=== PATIENT | female | born 1990 | race Caucasian/White ===

== ENCOUNTER 2019-11-25 14:36 | Observation (INO) | payer OTHER ==
--- NOTE | 2019-11-25 15:02 | ER Document Report ---
ED Medical Screen (RME) - General Chief Complaint: Breast Lump Stated Complaint: BREAST LUMP Time Seen by Provider: 11/25/19 14:55 Notes: Patient is a 29-year-old female who presents emergency department with a chief complaint of bilateral breast pain, but primarily on the left. Patient states that she was diagnosed with a hematoma in her right breast about 3 months ago. Patient states that she started having pain in her left breast a few weeks ago. She was seen by her RUBBER TILE FLOOR LAYER, as she is 2 months and was diagnosed with mastitis yesterday. Patient was started on Keflex. Patient was told by the RUBBER TILE FLOOR LAYER that she could possibly have an abscess in her left breast. She states that it is tender to touch. Exam: Exam deferred due to patient not in gown and in triage. Patient will be evaluated back. Ultrasound and labs ordered. I have greeted and performed a rapid initial assessment of this patient. A comprehensive ED assessment and evaluation of the patient, analysis of test results and completion of medical decision making process will be conducted by an additional ED providers. - Related Data Allergies/Adverse Reactions: No Known Allergies Allergy (Verified 11/25/19 14:54) Physical Exam - Vital signs Vitals: Temp Pulse Resp BP Pulse Ox 98.3 F 99 20 129/77 H 100 11/25/19 14:40 11/25/19 14:40 11/25/19 14:40 11/25/19 14:40 11/25/19 14:40 Course - Vital Signs Vital signs: Temp Pulse Resp BP Pulse Ox 98.3 F 99 20 129/77 H 100 11/25/19 14:40 11/25/19 14:40 11/25/19 14:40 11/25/19 14:40 11/25/19 14:40
[2019-11-25 15:24] LABS: ABSOLUTE BASOPHILS # (AUTO) 0.1 10^3/uL (0.0-0.2); ABSOLUTE EOSINOPHILS # (AUTO) 0.2 10^3/uL (0.0-0.6); ABSOLUTE LYMPHOCYTES (AUTO) 1.7 10^3/uL (0.5-4.7); ABSOLUTE MONOCYTES (AUTO) 0.6 10^3/uL (0.1-1.4); ABSOLUTE NEUT (AUTO) 10.7 10^3/uL (1.7-8.2); BASOPHILS % (AUTO) 0.5 % (0-2); EOSINOPHILS % (AUTO) 1.2 % (0-6); HEMATOCRIT 36.3 % (36.0-47.0); HEMOGLOBIN 12.8 g/dL (12.0-15.5); LYMPHOCYTES % (AUTO) 12.8 % (13-45); MEAN CORPUSCULAR HEMOGLOBIN 30.8 pg (27.0-33.4); MEAN CORPUSCULAR HGB CONC 35.3 g/dL (32.0-36.0); MEAN CORPUSCULAR VOLUME 87 fl (80-97); MONOCYTES % (AUTO) 4.3 % (3-13); PLATELET COUNT 278 10^3/uL (150-450); RED BLOOD COUNT 4.17 10^6/uL (3.72-5.28); RED CELL DISTRIBUTION WIDTH 13.5 % (11.5-14.0); SEGMENTED NEUTROPHILS % (AUTO) 81.2 % (42-78); TOTAL CELLS COUNTED % (AUTO) 100 %; WHITE BLOOD COUNT 13.2 10^3/uL (4.0-10.5)
[2019-11-25 15:45] LABS: ANION GAP 7 (5-19); BLOOD UREA NITROGEN 11 mg/dL (7-20); CALCIUM 9.4 mg/dL (8.4-10.2); CARBON DIOXIDE 28 mmol/L (22-30); CHLORIDE 103 mmol/L (98-107); GLUCOSE 98 mg/dL (75-110); POTASSIUM 4.1 mmol/L (3.6-5.0)
--- NOTE | 2019-11-25 17:35 | ER Document Report ---
ED Breast Problem - General Chief Complaint: Breast Lump Stated Complaint: BREAST LUMP Time Seen by Provider: 11/25/19 14:55 Primary Care Provider: SAMY NEVAREZ NP [Primary Care Provider] - Follow up as needed Notes: CHIEF COMPLAINT: Breast swelling HPI: 29-year-old female presenting for bilateral breast swelling and pain. Patient follows with a home care companion at [facility]. Patient is 3 months is not breast-feeding in the last 2 months. Patient states that she had been lifting and moving a table 5 weeks ago and felt pain in the right breast area. Developed some swelling in the medial aspect of the breast, saw her PCP who told her she might have a hematoma, states that she did have an ultrasound done at that time which confirmed this. She states the swelling has never gone down and the pain has worsened and the swelling is worsened in the last 2 weeks. Patient states in the last 2 weeks she also started developing some swelling and pain in the upper aspect of the left breast and has noticed increased redness over the last several days. Patient states that she did see her home care companion yesterday and was diagnosed with mastitis and placed on Keflex which she has been taking. States the swelling and pain has gotten worse today and she was told to come in for evaluation of a possible abscess. She has not had a fever. ROS: See HPI - all other systems were reviewed and are otherwise negative Constitutional: no fever Eyes: no drainage, no blurred vision ENT: no runny nose, no sore throat Cardiovascular: no chest pain Resp: no SOB, no cough GI: no vomiting, no diarrhea, no abdominal pain : no dysuria Integumentary: Positive rash Allergy: no hives Musculoskeletal: no extremity pain or swelling, positive breast pain and swelling Neurological: no numbness/tingling, no weakness MEDICATIONS: I agree with the patient medications as charted by the RN. ALLERGIES: I agree with the allergies as charted by the RN. PAST MEDICAL HISTORY/PAST SURGICAL HISTORY: Reviewed and agree as charted by RN. SOCIAL HISTORY: Reviewed and agree as charted by RN. FAMILY HISTORY: No significant familial comorbid conditions directly related to patient complaint EXAM: With female rn cardiovascular present Reviewed vital signs as charted by RN. CONSTITUTIONAL: Alert and oriented and responds appropriately to questions. Well-appearing; well-nourished HEAD: Normocephalic; atraumatic EYES: PERRL; Conjunctivae clear, sclerae non-icteric ENT: normal nose; no rhinorrhea; moist mucous membranes; pharynx without lesions noted, no uvula edema or deviation, no tonsillar hypertrophy, phonation normal NECK: Supple without meningismus; non-tender; no cervical lymphadenopathy, no masses CARD: RRR; no murmurs, no clicks, no rubs, no gallops; symmetric distal pulses RESP: Normal chest excursion without splinting or tachypnea; breath sounds clear and equal bilaterally; no wheezes, no rhonchi, no rales, pulse oximetry 98% on room air not hypoxic Breast exam: Bilateral breasts were examined. The right breast is noted to have a significantly firm and swollen area over the medial aspect of the right breast measuring approximately 6 cm in diameter with tenderness on palpation. No overlying erythema. This area is approximating 3:00 and does not come under the nipple. There is no visible bilateral nipple retraction or discharge. On the left breast there is an area also measuring approximately 6 cm with overlying erythema superior to the nipple. The swollen area does come under the nipple. There is tenderness to bilateral breasts. ABD/GI: Normal bowel sounds; non-distended; soft, non-tender, no rebound, no guarding; no palpable organomegaly or masses. BACK: The back appears normal and is non-tender to palpation, there is no CVA tenderness EXT: Normal ROM in all joints; no cyanosis, no effusions, no edema SKIN: Normal color for age and race; warm; dry; good turgor; no acute lesions noted NEURO: Moves all extremities equally; Motor and sensory function intact PSYCH: The patient's mood and manner are appropriate. Grooming and personal hygiene are appropriate. MDM: 29-year-old female with swollen areas to both breasts with overlying erythema to the left breast. Started on Keflex yesterday for possible mastitis. She is not breast-feeding. States the swollen area on the right breast was noted after traumatic discomfort when lifting. Patient with a mild leukocytosis of 13.5. She will have ultrasound to evaluate for fluid collection. - Related Data Allergies/Adverse Reactions: No Known Allergies Allergy (Verified 11/25/19 14:54) Past Medical History - Social History Smoking Status: Never Smoker Family History: Reviewed & Not Pertinent Patient has homicidal ideation: No Physical Exam - Vital signs Vitals: Temp Pulse Resp BP Pulse Ox 98.3 F 99 20 129/77 H 100 11/25/19 14:40 11/25/19 14:40 11/25/19 14:40 11/25/19 14:40 11/25/19 14:40 Course - Re-evaluation Re-evalutation: 11/25/19 18:[address] Joseph Kunz COLOR TELEVISION [employer]SOLE MONITOR he indicates that we should call surgery with regards to possible breast abscess 11/25/19 18:[address] Strong, Surgery. Case discussed he will come see the patient keep her n.p.o. patient reports she has not eaten or had anything to drink since 10 AM - Vital Signs Vital signs: Temp Pulse Resp BP Pulse Ox 98.3 F 99 20 129/77 H 100 11/25/19 14:40 11/25/19 14:40 11/25/19 14:40 11/25/19 14:40 11/25/19 14:40 - Laboratory Result Diagrams: 11/25/19 15:10 11/25/19 15:10 Laboratory results interpreted by me: 11/25/19 15:10 WBC 13.2 H Lymph % (Auto) 12.8 L Absolute Neuts (auto) 10.7 H Seg Neutrophils % 81.2 H Discharge - Discharge Clinical Impression: Breast abscess Condition: Stable Disposition: ADMITTED OBSERVATION Admitting Provider: Surgicalist - Dr. Strong Unit Admitted: OR Referrals: SAMY NEVAREZ, PROCESS ENG [Primary Care Provider] - Follow up as needed
[2019-11-25] MEDS ORDERED: OXYCODONE-ACETAMINOPHEN 5-325 MG TABLET PO ONE (17:57)
--- NOTE | 2019-11-25 18:03 | RADIOLOGY REPORT (SQ) ---
EXAM DESCRIPTION: U/S BREAST UNILATERAL LIMITED IMAGES COMPLETED DATE/TIME: 11/25/2019 5:34 pm REASON FOR STUDY: Right breast pain; hx of hematoma; Left breast pain; hx of mastitis; abcess? COMPARISON: None TECHNIQUE: Static and Realtime grayscale interrogation of focal area(s) of concern in the right and left breast(s) acquired. Selected color doppler/spectral images saved to PACS. LIMITATIONS: None. FINDINGS: Masses:Within the right breast at the 2 o'clock position approximately 3 cm from the nippl e there is a 6.0 x 5.8 x 4.2 cm predominantly well-circumscribed relatively hypoechoic mass demonstra ting a well-defined posterior margin and posterior acoustic enhancement suggesting complicated cyst. Color Doppler interrogation demonstrates no internal or peripheral vascularity. Within the left po ast at the 1 o'clock position approximately 3 cm from the nipple, there is a 3.4 x 2.5 x 3.8 cm predo minantly well-circumscribed relatively hypoechoic although somewhat heterogeneous mass demonstrating well-defined posterior margin and posterior acoustic enhancement suggesting complicated cyst. Color Doppler interrogation demonstrates no internal or peripheral vascularity. Architecture:No alteration of normal morphology. No skin thickening. No edema. Other: None. IMPRESSION: Bilateral breast masses as above. In the absence of comparison imaging, these remain i ndeterminate. Given the lack of vascularity, favor a hematomas versus resolving abscesses. Recommen d obtaining comparison imaging if available. Repeat sonographic evaluation in 6 months. BIRAD: 3 Probably benign finding. Initial short-interval follow-up suggested.. RECOMMENDATION: RECOMMENDED FOLLOW-UP: Recommend obtaining comparison imaging. Repeat sonographic e valuation of the bilateral breasts in 6 months. COMMENT: The [employer] (ACR) has developed recommendations for screening MRI of the breasts in certain patient populations, to be used in conjunction with mammography. Breast MRI s urveillance may be appropriate for women with more than 20% lifetime risk of developing breast cancer as determined by genetic testing, significant family history of the disease, or history of mantle r adiation for Hodgkins Disease. ACR Practice Guidelines 2008. TECHNICAL DOCUMENTATION: FINDING NUMBER: (1) ASSESSMENT: (1) JOB ID: [id number] 2010 [id number])- All Rights Reserved Reading location - IP/workstation name: [email or web address]
[2019-11-25] MEDS ORDERED: NORMAL SALINE 1000 ML 1,000 ML IV ONE ×2 (19:23→19:24)
[2019-11-25] MEDS ORDERED: CLINDAMYCIN 600 MG/D5W RTU 600 MG/50 ML RTUPB IV ONE (19:23)
[2019-11-25] MEDS ORDERED: CEFAZOLIN 2 GM/D5W RTU 2 GM/50 ML RTUPB IV ONE (19:23)
--- NOTE | 2019-11-25 19:35 | PDOC H&P ---
History of Present Illness Admission Date/PCP: SAMY NEVAREZ NP Patient complains of: Left breast redness and pain with mass; right breast tender mass History of Present Illness: QUYEN DOWELL is a 29 year old female 3 months following delivery of a healthy baby, who presents to the emergency room with a history of right breast mass and tenderness which was diagnosed with a hematoma; this mass occurred about 4 weeks ago and the symptoms have somewhat resolved. In addition, 3 weeks ago she presented with a right breast mass with erythema and pain; the mass was diagnosed as possible breast infection by her primary care physician. Due to the worsening of the left breast mass symptoms, the patient was started on Keflex yesterday. However, she has experienced no provement of her left breast symptoms since she started antibiotics according to the patient. She quit breast-feeding 2 weeks after delivery because of bilateral breast pain while breast-feeding. Day, a bilateral breast ultrasound has been done, this ultrasound demonstrates a possible resolving right breast hematoma and a breast complex mass of unknown origin; however, no malignancy is identified on either mass. Social History Smoking Status: Never Smoker Family History Family History: Reviewed & Not Pertinent Parental Family History Reviewed: No Children Family History Reviewed: No Sibling(s) Family History Reviewed.: No Medication/Allergy Allergies/Adverse Reactions: No Known Allergies Allergy (Verified 11/25/19 14:54) Physical Exam Vital Signs: Temp Pulse Resp BP Pulse Ox 98.3 F 99 20 129/77 H 100 11/25/19 14:40 11/25/19 14:40 11/25/19 14:40 11/25/19 14:40 11/25/19 14:40 Intake & Output 11/24/19 11/25/19 11/26/19 06:59 06:59 06:59 Weight 81.6 kg General appearance: PRESENT: no acute distress, thin, well-developed Head exam: PRESENT: atraumatic, normocephalic Eye exam: PRESENT: EOMI Mouth exam: PRESENT: moist, neck supple Neck exam: PRESENT: full ROM Respiratory exam: PRESENT: clear to auscultation xenia Cardiovascular exam: PRESENT: RRR Breast: PRESENT: Tenderness - On the left side, Mass/Lump - Bilateral; the mass on the right measures approximately 8 centimeter, not tender; the mass on the left measures approximately 7 cm, it is tender and covered by erythematous skin, located superior to the areola at about 12:00, Ecchymosis - None noted, Drainage - None noted, Dimpling - None noted, Other - Bilateral axillary exam is negative for enlarged lymph nodes GI/Abdominal exam: PRESENT: soft Rectal exam: PRESENT: deferred Extremities exam: PRESENT: full ROM Musculoskeletal exam: PRESENT: full ROM Neurological exam: PRESENT: alert, awake, oriented to time, CN II-XII grossly intact, normal gait Psychiatric exam: PRESENT: appropriate affect Skin exam: PRESENT: warm Results Laboratory Results: 11/25/19 15:10 11/25/19 15:10 11/25/19 11/25/19 15:10 15:10 WBC 13.2 H RBC 4.17 Hgb 12.8 Hct 36.3 MCV 87 MCH 30.8 MCHC 35.3 RDW 13.5 Plt Count 278 Seg Neutrophils % 81.2 H Sodium 137.9 Potassium 4.1 Chloride 103 Carbon Dioxide 28 Anion Gap 7 BUN 11 Creatinine 0.59 Est GFR ( Amer) > 60 Glucose 98 Calcium 9.4 Impressions: Breast Ultrasound 11/25/19 15:18 IMPRESSION: Bilateral breast masses as above. In the absence of comparison imaging, these remain indeterminate. Given the lack of vascularity, favor a hematomas versus resolving abscesses. Recommend obtaining comparison imaging if available. Repeat sonographic evaluation in 6 months. Assessment & Plan - Diagnosis (1) Abscess of left breast associated with Is this a current diagnosis for this admission?: Yes (2) Hematoma of right breast Is this a current diagnosis for this admission?: Yes - Time Anticipated Discharge Disposition: Home, Self Care Anticipated Discharge Timeframe: within 72 hours - Plan Summary Plan Summary: Assessment: 3 months status post delivery of a healthy child Right breast mass and pain now resolved about 1 month ago; Right breast ultrasound done today diagnoses this lump as resolving hematoma (the patient gives a history of right breast trauma) Left breast painful mass with redness located above the areola at 12:00 o'clock, diagnosed as complex cyst on ultrasound today Leukocytosis 13,000 Plan: Incision and drainage of left breast abscess under MAC with local anesthesia tonight Procedure, benefits, complications, alternatives, discussed with the patient, her questions were answered, she desires to proceed Ancef 2 g preop Clindamycin 600 mg preop N.p.o. IV fluids Patient to follow
[2019-11-25] MEDS ORDERED: MIDAZOLAM 2 MG/2 ML INJ ONE (21:02)
[2019-11-25] MEDS ORDERED: FENTANYL CITRATE INJ/PF 100 MCG/2 ML AMPUL ONE (21:02)
[2019-11-25] MEDS ORDERED: ONDANSETRON HCL INJ/PF 4 MG/2 ML SDV ONE (21:03)
[2019-11-25] MEDS ORDERED: PROPOFOL INJ 200 MG/20 ML VIAL IV ONE (21:03)
[2019-11-25] MEDS ORDERED: DEXMEDETOMIDINE INJ 80 MCG/20 ML VIAL IV ONE (21:03)
[2019-11-25] MEDS ORDERED: BUPIVACAINE HCL 0.5 % INJ/PF 30 ML SDV ONE (21:48)
[2019-11-25] MEDS ORDERED: LIDOCAINE 1%/EPINEPHRINE INJ 20 ML VIAL ONE (21:48)
[2019-11-25] MEDS ORDERED: DIPHENHYDRAMINE HCL 50 MG/ML VIAL IV PRN (22:00)
[2019-11-25] MEDS ORDERED: FENTANYL CITRATE INJ/PF 100 MCG/2 ML AMPUL IV PRN ×3 (22:00)
[2019-11-25] MEDS ORDERED: ONDANSETRON HCL INJ/PF 4 MG/2 ML SDV IV PRN ×2 (22:00→22:19)
[2019-11-25] MEDS ORDERED: PROMETHAZINE HCL INJ 25 MG/1 ML VIAL IV PRN ×2 (22:00)
[2019-11-25] MEDS ORDERED: MORPHINE SULFATE 10 MG/ML INJ IV PRN ×2 (22:00→22:19)
[2019-11-25] MEDS ORDERED: MEPERIDINE HCL/PF INJ 25 MG/1 ML DISP.SYRIN IV PRN (22:00)
[2019-11-25] MEDS ORDERED: OXYCODONE-ACETAMINOPHEN 5-325 MG TABLET PO PRN ×2 (22:00)
--- NOTE | 2019-11-25 22:19 | Operative Report ---
Operative Report DATE OF SURGERY: 11/25/19 PREOPERATIVE DIAGNOSIS: Left breast abscess POSTOPERATIVE DIAGNOSIS: Same OPERATION: Left breast abscess I&D SURGEON: PARI BEASLEY ANESTHESIA: LMAC - +20 mL's 1% lidocaine and 0.5% Marcaine 50-50 volume to volume TISSUE REMOVED OR ALTERED: Approximately 20 mL of pus COMPLICATIONS: None ESTIMATED BLOOD LOSS: Negligible INTRAOPERATIVE FINDINGS: Moderately large abscess cavity located at 12:00 above the areolar, left breast PROCEDURE: The procedure was done in the operating room, the patient was placed in a supine position, the area of the left breast abscess was prepped and draped in usual fashion. The proposed line of incision was outlined with a surgical marker, this was a curvilinear incision made between the areola and the skin at about 12:00 o'clock and extending from 3:00 to 9:00 o'clock. A skin incision was then made with a #15 blade, and a moderate amount of pus was obtained after that the subcutaneous fat was pierced with a hemostat. This was sent for aerobic anaerobic culture and Gram stain. The incision was then extended further, both medially and laterally to follow the skin incision length. After this, a finger was inserted inside the wound and the internal septations were disrupted so to make one single cavity. The abscess cavity was irrigated with 200 mL of warm normal saline which was fully aspirated. Local bleeders were cauterized. The abscess cavity was packed with half inch packing strip, covered with dry 4 x 4's, ABDs, and tape were applied. The patient tolerated procedure well and transferred to the recovery room in satisfactory conditions.
[2019-11-25] MEDS ORDERED: FAMOTIDINE 20 MG TABLET PO ONE (22:45)
[2019-11-25] MEDS ORDERED: DOCUSATE SODIUM 100 MG CAPSULE PO ONE (23:00)
[2019-11-26 04:43] LABS: ABSOLUTE BASOPHILS # (AUTO) 0.1 10^3/uL (0.0-0.2); ABSOLUTE EOSINOPHILS # (AUTO) 0.2 10^3/uL (0.0-0.6); ABSOLUTE LYMPHOCYTES (AUTO) 2.1 10^3/uL (0.5-4.7); ABSOLUTE MONOCYTES (AUTO) 0.8 10^3/uL (0.1-1.4); ABSOLUTE NEUT (AUTO) 7.4 10^3/uL (1.7-8.2); BASOPHILS % (AUTO) 0.5 % (0-2); EOSINOPHILS % (AUTO) 2.1 % (0-6); HEMOGLOBIN 12.2 g/dL (12.0-15.5); LYMPHOCYTES % (AUTO) 20.2 % (13-45); MEAN CORPUSCULAR HEMOGLOBIN 30.4 pg (27.0-33.4); MEAN CORPUSCULAR HGB CONC 34.9 g/dL (32.0-36.0); MEAN CORPUSCULAR VOLUME 87 fl (80-97); MONOCYTES % (AUTO) 7.6 % (3-13); PLATELET COUNT 220 10^3/uL (150-450); RED BLOOD COUNT 4.01 10^6/uL (3.72-5.28); RED CELL DISTRIBUTION WIDTH 13.2 % (11.5-14.0); SEGMENTED NEUTROPHILS % (AUTO) 69.6 % (42-78); TOTAL CELLS COUNTED % (AUTO) 100 %; WHITE BLOOD COUNT 10.6 10^3/uL (4.0-10.5)
[2019-11-26 05:36] LABS: ANION GAP 8 (5-19); BLOOD UREA NITROGEN 9 mg/dL (7-20); CALCIUM 8.7 mg/dL (8.4-10.2); CARBON DIOXIDE 23 mmol/L (22-30); CHLORIDE 106 mmol/L (98-107); GLUCOSE 92 mg/dL (75-110); POTASSIUM 3.9 mmol/L (3.6-5.0)
[2019-11-26] MEDS ORDERED: CEFAZOLIN 1 GM/D5W RTU 1 GM/50 ML RTUPB IV ONE (05:57)
[2019-11-26] MEDS: CLINDAMYCIN 600 MG/D5W RTU 600 MG/50 ML RTUPB IV SCH ×3 (06:18→22:04)
[2019-11-26] MEDS: CEFAZOLIN 1 GM/D5W RTU 1 GM/50 ML RTUPB IV SCH ×3 (06:20→22:04)
[2019-11-26] MEDS: KETOROLAC TROMETHAMINE INJ/PF 30 MG/1 ML SDV IV PRN ×2 (08:09→14:13)
[2019-11-26] MEDS: ACETAMINOPHEN 1,000 MG/100 ML RTUPB IV SCH ×4 (08:09→23:36)
[2019-11-26] MEDS: FAMOTIDINE 20 MG TABLET PO SCH ×2 (09:28→22:03)
[2019-11-26] MEDS: ENOXAPARIN SODIUM INJ 40 MG/0.4 ML DISP.SYRIN SUBCUT SCH (09:28)
[2019-11-26] MEDS: DOCUSATE SODIUM 100 MG CAPSULE PO SCH ×2 (09:28→17:56)
--- NOTE | 2019-11-26 10:12 | PDOC DISCHARGE SUMMARY ---
General - Admit/Disc Date/PCP Admission Date/Primary Care Provider: 11/25/19 19:52 SAMY NEVAREZ NP Discharge Date: 11/26/19 - Discharge Diagnosis Final Diagnosis: left breast abscess - Assessment Summary: Is a 29-year-old female who was admitted to the hospital last night with a left breast abscess. She was taken to the operating room where she underwent incision and drainage of it and it was packed. The following day she is much improved her pain is much improved the packing has been removed from the upper outer quadrant of the left breast which shows a clean granulation bed. Patient wishes to be discharged home today. She has been instructed in wet-to-dry dressing changes and home health is been arranged for help with wound care at home. She will be given a follow-up appointment 7 to 10 days in surgical clinic. She will be given Ultram for pain management. - Additional Information Resuscitation Status: Full Code Discharge Diet: As Tolerated Discharge Activity: Activity As Tolerated Referrals: PARI BEASLEY MD [ACTIVE STAFF] - Prescriptions: Oxycodone HCl/Acetaminophen [Percocet 5-325 mg Tablet] 1 tab PO Q6HP PRN #15 tab PRN Reason: Home Medications: Oxycodone HCl/Acetaminophen [Percocet 5-325 mg Tablet] 1 tab PO Q6HP PRN #15 tab 11/26/19 History of Present Illiness History of Present Illness: QUYEN DOWELL is a 29 year old female Physical Exam Vital Signs: Temp Pulse Resp BP Pulse Ox 98.1 F 86 16 117/64 100 11/26/19 08:25 11/26/19 07:12 11/26/19 07:12 11/26/19 07:12 11/26/19 07:12 Intake & Output 11/25/19 11/26/19 11/27/19 06:59 06:59 06:59 Intake Total 1670 Output Total 5 Balance 1665 Weight 81.9 kg Results Laboratory Results: WBC 10.6 10^3/uL (4.0-10.5) H 11/26/19 04:17 RBC 4.01 10^6/uL (3.72-5.28) 11/26/19 04:17 Hgb 12.2 g/dL (12.0-15.5) 11/26/19 04:17 Hct 35.0 % (36.0-47.0) L 11/26/19 04:17 MCV 87 fl (80-97) 11/26/19 04:17 MCH 30.4 pg (27.0-33.4) 11/26/19 04:17 MCHC 34.9 g/dL (32.0-36.0) 11/26/19 04:17 RDW 13.2 % (11.5-14.0) 11/26/19 04:17 Plt Count 220 10^3/uL (150-450) 11/26/19 04:17 Lymph % (Auto) 20.2 % (13-45) 11/26/19 04:17 [place] % (Auto) 7.6 % (3-13) 11/26/19 04:17 Eos % (Auto) 2.1 % (0-6) 11/26/19 04:17 Baso % (Auto) 0.5 % (0-2) 11/26/19 04:17 Absolute Neuts (auto) 7.4 10^3/uL (1.7-8.2) 11/26/19 04:17 Absolute Lymphs (auto) 2.1 10^3/uL (0.5-4.7) 11/26/19 04:17 Absolute Monos (auto) 0.8 10^3/uL (0.1-1.4) 11/26/19 04:17 Absolute Eos (auto) 0.2 10^3/uL (0.0-0.6) 11/26/19 04:17 Absolute Basos (auto) 0.1 10^3/uL (0.0-0.2) 11/26/19 04:17 Seg Neutrophils % 69.6 % (42-78) 11/26/19 04:17 Sodium 137.2 mmol/L (137-145) 11/26/19 04:17 Potassium 3.9 mmol/L (3.6-5.0) 11/26/19 04:17 Chloride 106 mmol/L (98-107) 11/26/19 04:17 Carbon Dioxide 23 mmol/L (22-30) 11/26/19 04:17 Anion Gap 8 (5-19) 11/26/19 04:17 BUN 9 mg/dL (7-20) 11/26/19 04:17 Creatinine 0.52 mg/dL (0.52-1.25) 11/26/19 04:17 Est GFR ( Amer) > 60 (>60) 11/26/19 04:17 Est GFR (MDRD) Non-Af > 60 (>60) 11/26/19 04:17 Glucose 92 mg/dL (75-110) 11/26/19 04:17 Calcium 8.7 mg/dL (8.4-10.2) 11/26/19 04:17 SARS-CoV-2 (PCR) NEGATIVE (NEGATIVE) 11/25/19 20:05 Impressions: Breast Ultrasound 11/25/19 15:17 IMPRESSION: Bilateral breast masses as above. In the absence of comparison imaging, these remain indeterminate. Given the lack of vascularity, favor a hematomas versus resolving abscesses. Recommend obtaining comparison imaging if available. Repeat sonographic evaluation in 6 months. Breast Ultrasound 11/25/19 15:18
[2019-11-26] MEDS: OXYCODONE-ACETAMINOPHEN 5-325 MG TABLET PO PRN ×2 (11:11→19:51)
[2019-11-27] MEDS: ACETAMINOPHEN 1,000 MG/100 ML RTUPB IV SCH ×2 (05:43→14:05)
[2019-11-27] MEDS: CLINDAMYCIN 600 MG/D5W RTU 600 MG/50 ML RTUPB IV SCH (05:43)
[2019-11-27] MEDS: CEFAZOLIN 1 GM/D5W RTU 1 GM/50 ML RTUPB IV SCH (05:44)
[2019-11-27] MEDS: OXYCODONE-ACETAMINOPHEN 5-325 MG TABLET PO PRN ×2 (05:58→10:20)
[2019-11-27 08:21] VITALS: BP 113/65
--- NOTE | 2019-11-27 08:46 | PDOC PROGRESS REPORT ---
Subjective Progress Note for:: 11/27/19 Reason For Visit: LEFT BREAST ABCESS Patient stayed overnight because of the unavailability of home health. She had no fever overnight. Physical Exam Vital Signs: Temp Pulse Resp BP Pulse Ox 98.3 F 89 17 113/65 100 11/27/19 07:57 11/27/19 07:57 11/27/19 07:57 11/27/19 07:57 11/27/19 07:57 Intake & Output 11/26/19 11/27/19 11/28/19 06:59 06:59 06:59 Intake Total 1770 2420 Output Total 5 Balance 1765 2420 Weight 81.9 kg 81.2 kg General appearance: PRESENT: no acute distress Breast: PRESENT: Other - Supportive bra removed. Dressings and packing removed. Cavity 3 and half by 4 x 4 cm, clean, without foul smell. Wound irrigated with saline and repacked with 1 moistened 4 x 4 gauze. Results Laboratory Results: 11/26/19 04:17 11/26/19 04:17 Impressions: Breast Ultrasound 11/25/19 15:18 IMPRESSION: Bilateral breast masses as above. In the absence of comparison imaging, these remain indeterminate. Given the lack of vascularity, favor a hematomas versus resolving abscesses. Recommend obtaining comparison imaging if available. Repeat sonographic evaluation in 6 months. Assessment & Plan - Diagnosis (1) Abscess of left breast associated with Is this a current diagnosis for this admission?: Yes Plan: Impression: Stable open packed left breast abscess cavity, doing well, no complications. Recommendations 1. I believe patient can be managed on outpatient basis with her performing dressing changes which patient agreed to. 2. No indication for additional antibiotics 3. Patient will be discharged home today, follow-up with [facility] in 1 to 2 weeks. 4. I specifically instructed the patient to get into the shower and remove packing so that she is completely naked. There is no risk of injury or complications associated with getting into the shower. - Time Time Spent: 30 to 50 Minutes Critical Time spent with patient: 15-24 minutes Medications reviewed and adjusted accordingly: Yes Anticipated Discharge Disposition: Home, Self Care Anticipated Discharge Timeframe: To be discharged today
[2019-11-27] MEDS: FAMOTIDINE 20 MG TABLET PO SCH (10:20)
[2019-11-27] MEDS: ENOXAPARIN SODIUM INJ 40 MG/0.4 ML DISP.SYRIN SUBCUT SCH (10:20)
[2019-11-27] MEDS: DOCUSATE SODIUM 100 MG CAPSULE PO SCH (10:25)
== END 2019-11-27 13:00 | disposition home health service (06) ==
LOC: ER 14:36 → EH 19:52 → 4S 22:44
PROVIDERS: ATTEND Surgery
DX: N61.1 Abscess of the breast and nipple (principal); N64.89 Other specified disorders of breast; N63.0 Unspecified lump in unspecified breast; N64.4 Mastodynia; R21 Rash and other nonspecific skin eruption; Z20.828 Contact with and (suspected) exposure to other viral communicable diseases
CPT/HCPCS: 10060; 99285; 96365; 96367; 36415 ×2; 87070; 87205; 85025 ×2; 87635; 87075; 87077; 80048 ×2; 87186; 76642; 99140; 00400; G0378 ×2; L8000; J2250; J3490 ×3; J0690 ×3; J3010; J1885; J1650 ×2; J2405; J7030; J2704; J0131 ×2; C9803; 400

== ENCOUNTER → 2020-02-22 | Outpatient (CLI) | payer OTHER ==
--- NOTE | 2020-02-22 13:19 | WOMENS IMAGING REPORT ---
EXAM DESCRIPTION: U/S BREAST UNILAT LIMITED IMAGES COMPLETED DATE/TIME: 02/22/2020 11:27 am REASON FOR STUDY: L02.818 CUTANEOUS ABSCESS OF OTHER SITES (LEFT) L02.818 CUTANEOUS ABSCESS OF OTHE R SITES COMPARISON: 11/25/2019 TECHNIQUE: Real-time and static grayscale imaging performed of the left breast targeted to the area of clinical/mammographic concern. Selected color Doppler images recorded. LIMITATIONS: None. FINDINGS: There is approximately 1.9 cm maximum diameter hypoechoic avascular hematoma adjacent to s car from previous I and D. IMPRESSION: Small hematoma. BIRAD: 3 Probably benign finding. Initial short-interval follow-up suggested. RECOMMENDATION: RECOMMENDED FOLLOW-UP: Clinical follow-up to resolution or repeat ultrasound 3 month s. COMMENT: The [employer] (ACR) has developed recommendations for screening MRI of the breasts in certain patient populations, to be used in conjunction with mammography. Breast MRI s urveillance may be appropriate for women with more than 20% lifetime risk of developing breast cancer as determined by genetic testing, significant family history of the disease, or history of mantle r adiation for Hodgkins Disease. ACR Practice Guidelines 2008. TECHNICAL DOCUMENTATION: JOB ID: [id number] 2010 [employer]- All Rights Reserved Reading location - IP/workstation name: [email or web address]
--- NOTE | 2020-02-22 13:24 | WOMENS IMAGING REPORT ---
EXAM DESCRIPTION: U/S BREAST UNILAT LIMITED IMAGES COMPLETED DATE/TIME: 02/22/2020 11:27 am REASON FOR STUDY: L02.818 CUTANEOUS ABSCESS OF OTHER SITES (RIGHT) L02.818 CUTANEOUS ABSCESS OF OTH ER SITES COMPARISON: 11/25/2019 TECHNIQUE: Real-time and static grayscale imaging performed of the right breast targeted to the area of clinical/mammographic concern. Selected color Doppler images recorded. LIMITATIONS: None. FINDINGS: Previously described hypoechoic heterogeneous avascular lesion 4.8 x 2.7 x 2.8 cm, previou sly 6.0 x 5.8 x 4.2 cm. Adjacent to open wound with visible plaquing in the 3 o'clock position. IMPRESSION: Resolving surgical wound/hematoma. BIRAD: 3 Probably benign finding. Initial short-interval follow-up suggested. RECOMMENDATION: RECOMMENDED FOLLOW-UP: Clinical follow-up to resolution or three-month ultrasound fo llow-up. COMMENT: The [employer] ([employer]) has developed recommendations for screening MRI of the breasts in certain patient populations, to be used in conjunction with mammography. Breast MRI s urveillance may be appropriate for women with more than 20% lifetime risk of developing breast cancer as determined by genetic testing, significant family history of the disease, or history of mantle r adiation for Hodgkins Disease. [employer] Practice Guidelines 2008. TECHNICAL DOCUMENTATION: JOB ID: [id number] 2010 [employer]- All Rights Reserved Reading location - IP/workstation name: [email or web address]
== END ==
LOC: WI 10:30
PROVIDERS: ATTEND Nurse Practitioner Family
DX: L02.818 Cutaneous abscess of other sites (principal); L76.32 Postprocedural hematoma of skin and subcutaneous tissue following other procedure
CPT/HCPCS: 76642